=== PATIENT | female | born 1950 | race Caucasian/White ===

== ENCOUNTER 2022-05-10 18:27 | Outpatient (CLI) | payer MEDICARE ==
[2022-05-10 19:12] LABS: #Basophils 0.1 thou/uL (0.0-0.2); #Eosinphils 0.2 thou/uL (0.0-0.7); #Lymphocytes 3.1 thou/uL (1.20-3.40); #Monocytes 0.9 thou/uL (0.11-0.59); #Neutrophils 5.1 thou/uL (1.40-6.50); %Basophils 1.3 % (0.0-1.0); %Eosinophils 2.5 % (0.0-10.0); %Lymphocytes 32.9 % (21.0-51.0); %Monocytes 9.3 % (0.0-10.0); Hemoglobin 13.5 g/dL (12.0-16.0); Mean Corpuscular HGB CONC 32.7 g/dL (32.0-36.0); Mean Corpuscular Hemoglobin 28.6 pg (27.0-31.0); Mean Corpuscular Volume 87.7 fL (78.0-98.0); Mean Platelet Volume 8.7 fL (7.4-10.4); Platelet Count 201 thou/uL (130-400); Red Blood Cell (RBC) Count 4.72 mill/uL (4.20-5.40); White Blood Cell (WBC) Count 9.5 thou/uL (4.8-10.8)
== END 2022-05-10 18:28 | disposition home or self-care (01) ==
LOC: MADLAB 18:27
PROVIDERS: ATTEND Internal Medicine Gastroenterology
DX: K92.1 Melena (principal); R53.81 Other malaise; R53.83 Other fatigue
CPT/HCPCS: 85025

== ENCOUNTER 2023-07-15 12:27 | Emergency (ER) | payer MEDICARE ==
[2023-07-15 12:52] LABS: Bilirubin Negative (Negative); Blood, Urine Small (Negative); Clarity Cloudy (Clear); Glucose, Urine (Dipstick) Negative (Negative); Ketone, Urine Negative (Negative); Leukocyte Small (Negative); Nitrite Negative (Negative); Protein, Urine (Dipstick) 100 mg/dL (Neg-Trace); Urobilinogen 0.2 mg/dL (Less than 2)
[2023-07-15 13:02] LABS: Bacteria/HPF Rare-Few HPF (None Seen); CAUTI Indications for Culture Dysuria,urgency,freq; Mucous/LPF 1+ LPF (<2+); RBC/HPF 0-3 HPF (0-3); Squamous Epithelial 0-3 HPF (0-3); Urine Culture Reflex Yes Yes; WBC/HPF Greater Than 50 HPF (0-3)
== END 2023-07-15 14:15 | disposition home or self-care (01) ==
LOC: MADERS 12:27
DX: R30.0 Dysuria (principal); E78.00 Pure hypercholesterolemia, unspecified; I10 Essential (primary) hypertension; Z87.891 Personal history of nicotine dependence
CPT/HCPCS: 81001; 87086; 99283

== ENCOUNTER 2023-10-27 09:55 | Emergency (ER) | payer MEDICARE ==
[2023-10-27] MEDS ORDERED: Ondansetron ODT 4 MG TAB ONE (10:26)
[2023-10-27] MEDS ORDERED: Ibuprofen 600 MG TAB ONE (11:11)
== END 2023-10-27 11:12 | disposition home or self-care (01) ==
LOC: MADERS 09:55
DX: B34.9 Viral infection, unspecified (principal); I10 Essential (primary) hypertension; E78.5 Hyperlipidemia, unspecified; Z87.891 Personal history of nicotine dependence
CPT/HCPCS: 87804; 99284; Q0162

== ENCOUNTER 2024-06-26 12:50 | Outpatient (CLI) | payer MEDICARE | END 2024-06-26 12:51 | disposition home or self-care (01) | LOC: MADLAB 12:50 | PROVIDERS: ATTEND Specialist | DX: M70.61 Trochanteric bursitis, right hip (principal); M16.11 Unilateral primary osteoarthritis, right hip ==